=== PATIENT | female | born 1975 | race Caucasian/White ===

== ENCOUNTER → 2020-08-06 09:02 | Outpatient (CLI) | payer BC, SELFPAY ==
--- NOTE | ~2020-08-06 | XR_ITS ---
EXAMINATION: XR ribs RT 2V w CXR 2V INDICATION: Right-sided rib pain, history of breast cancer TECHNIQUE: Frontal and lateral views of the chest and 3 views of the right ribs were obtained. COMPARISON: 07/04/2016 FINDINGS: There is a calcified granuloma of the right lung. The lungs are free of acute opacities. Th ere is no pleural effusion or pneumothorax. The cardiomediastinal silhouette is normal. No displaced rib fracture is identified. IMPRESSION: 1. No acute cardiopulmonary abnormality or evidence of displaced rib fracture. Reviewed, dictated and finalized at location A.
== END ==
PROVIDERS: PCP Family Medicine Adolescent Medicine; Visit Provider Physician Assistant
DX: R07.81 Pleurodynia (principal); Z85.3 Personal history of malignant neoplasm of breast
CPT/HCPCS: 71046; 71100

== ENCOUNTER 2025-05-09 00:58 | Day surgery (SDC) | payer BC, SELFPAY ==
[2025-04-30 15:39] VITALS: BMI 43.0
--- NOTE | 2025-04-30 15:48 | PC.NURSE ---
Addendum entered by Sherin Alfaro RN 04/30/25 15:53: Patient states she has not started her semaglutide yet and will not start it until after her procedures. Original Note: Report to the Outpatient Waiting Room, entrance under the green pavilion located off [facility], at time ___714 on date _05/09/25 . Planned Procedure Time: .? Time changes happen often and if your time is changed the preop area will call you the afternoon before. - You and your visitor will be asked to self-screen and do not enter if you have any COVID symptoms. Please call surgeon if you need to reschedule. - A mask is optional within the hospital at this time. Patients may have clear liquids (water, carbonated beverages, clear teas, apple juice) until 3 hours prior to surgery with a maximum of 20 ounces. - No food from midnight until time of surgery and no smoking, or chewing tobacco (or any form of nicotine). No chewing gum, candy or mints. - Infants may have breast milk until 4 hours before surgery, infant formula 6 hours prior to surgery. - Children will be allowed to drink immediately following surgery.? If applicable, please bring a bottle or sippy cup to assist with drinking. Juice, water, soda, and popsicles are readily available.? For infants on formula, please bring formula the day of surgery.? Pacifiers are allowed. Take only the following medications with a SIP of water on the morning of surgery: _Coreg DO NOT STOP ANY OF YOUR OTHER PRESCRIPTION MEDICATIONS PRIOR TO SURGERY EXCEPT THE FOLLOWING Hold all vitamins and supplements for 3 days per anesthesiologist. Medications to discontinue per physician _N/A Date to take last dose__N/A Please no make-up, nail danish, hairspray, perfume, deodorant, or body powder the day of surgery.? No jewelry (including any body piercings) or valuables the day of surgery, leave them at home.? Please take a shower or bath the night before, or the morning of, surgery with an antibacterial soap.? Wear comfortable, loose fitting clothing.? Children are encouraged to wear pajamas. - Jewelry must be removed prior to entering the operating room.? Rings and piercings that are not removed may be cut off. - The hospital will not accept responsibility for valuables.? - Please leave all valuables, including medications, at home the day of surgery. If you are going home after surgery, a licensed spike driver must drive you home.? - NO public transportation without another adult if you receive anesthesia. - We recommend that an adult stay with you for 24 hours following discharge. - We also recommend that you do not drive, make important decision, drink alcoholic beverages, or take any drugs that were not prescribed by your health care provider for at least 24 hours after your discharge time. For Pediatric surgeries, we recommend two adults accompany the child home. Follow any additional instructions given to you from your surgeon. Telephone instructions given to __Adry and asked if any additional questions and then verbalized understanding. Patient advised to call surgeon office or pre surgery nurse liaison [phone] if any additional questions.
--- NOTE | 2025-05-07 15:11 | PM.IMHP ---
H&P: HPI History of Present Illness Date/Time: 05/07/25 15:11 50-year-old female presents for evaluation regarding postmenopausal bleeding. Breast cancer diagnosed over 5 years ago and took tamoxifen for 5 years and has been off of it since July of 2024. During that time she was on tamoxifen she had no bleeding. Since coming off tamoxifen she had a heavy period in December and then has been spotting on and off since that time. Ultrasound did reveal a 25mm irregularly-shaped endometrial cavity and therefore presents today for hysteroscopy with tissue sampling. Chief Complaint: Postmenopausal bleeding Review of Systems Review of Systems: All systems reviewed & are unremarkable except as noted in HPI and below PMFSH Past Medical History Medical History Encounter for IUD removal 07/20/17 Mirena removal/reinsertion 03/28/19 Mirena removal Encounter for IUD insertion 06/28/12 Mirena insertion 07/20/17 Mirena removal/reinsertion History of right breast cancer 08/2018 Invasive ductal ca, stage 1 grade 1 2018 21 days of radiation Nicotine dependence, cigarettes, uncomplicated Morbid obesity with BMI of 40.0-44.9, adult Hypertension Pure hypercholesterolemia, unspecified Dilated cardiomyopathy (2007) with CHF Surgical History Surgical History H/O right breast biopsy (09/06/18) S/P lumpectomy, right breast (11/30/18) S/P breast biopsy, left (10/13/18) [place] teeth extracted (~2000) History of bilateral breast reduction surgery (11/30/18) History of mastectomy, subtotal (11/30/18) rt breast partial mastectomy--invasive ductal carcinoma History of bunionectomy of both great toes 04/18/16 right foot 03/29/18 left foot History of 06/15/08 primary c/s--non-inducible cervix Family History Family History Father Diabetes mellitus Heart disease Hypertension Lung cancer Other Breast cancer paternal aunt Social History Social History Smoking packs per day: 0.5 Smoking cigarettes per day: 10.0 Years smoked: 20 Smoking pack-years: 10.00 Smoking status: Former smoker Tobacco type: cigarettes Second hand tobacco smoke exposure: No Smoking end date: 10/24/19 Alcohol intake: never Substance use: never Substance use type: does not use Lack of Transportation: No Lack of Food: Never True Current Housing: I Have Housing Concerned About Future Housing: No Difficulty Paying Gas/Electric Bills: No Difficulty Paying for Meds: No Currently Unemployed: No Education: Bachelor's Degree Difficulty w/ Childcare or Family Care: No Living arrangements: with family Additional living arrangements comments: with sp Occupation/Education: occupation Additional occupation/education comments: Teacher Gender identity (if verbalized by the patient): Female Sexual Orientation (if Verbalized by the Patient): Straight or Heterosexual Spiritual care concerns: No Agree to blood products: Yes Meds Home Medications and Allergies Home Medications ?Medication ?Instructions ?Recorded ?Confirmed ?Type amlodipine 5 mg-benazepril 20 mg 1 cap PO DAILY 07/18/23 05/01/25 History capsule atorvastatin 20 mg tablet (Lipitor) 20 mg PO QHS #90 tabs 04/08/25 05/01/25 Rx semaglutide (weight loss) 0.25 0.25 mg (0.5 mL) subcut WEEKLY #2 04/08/25 05/01/25 Rx mg/0.5 mL subcutaneous pen mL injector (Wegovy) carvedilol 25 mg tablet See Rx Instructions .Route 04/09/25 05/01/25 Rx .COMPLEX #180 tabs Allergies Allergy/AdvReac Type Severity Reaction Status Date / Time No Known Allergies Allergy Unknown Verified 05/01/25 14:09 Exam Const: General: cooperative and healthy appearing Resp: Effort & Inspection: normal respiratory effort Auscultation: clear to auscultation bilaterally Cardio: Rate: regular rate Rhythm: regular rhythm GI: Inspection: normal to inspection Auscultation: normal bowel sounds : External Female Exam: normal external appearance Speculum Exam - Vagina: normal appearance of the vagina Speculum Exam - Cervix: normal appearance of the cervix Bimanual exam- vagina & uterus: normal bimanual exam Bimanual Exam- Adnexa, other: normal adnexae Assessment and Plan Assessment and plan (1) Postmenopausal bleeding: Code(s): N95.0 - Postmenopausal bleeding Status: Acute (2) Endometrial thickening on ultrasound: Code(s): R93.89 - Abnormal findings on diagnostic imaging of other specified body structures Status: Acute (3) Personal history of breast cancer: Code(s): Z85.3 - Personal history of malignant neoplasm of breast Status: Acute Plan 1. Hysteroscopy with uterine curettings
--- OUTSIDE RECORDS SUMMARY | 2025-05-09 01:00 | XMS_ITS | Encounter Summary ---
Author Organization [facility] Address [address] [address] Care Team Providers Care Washtub Worker Name Role Phone Vernon Jones MD Primary Care Prov ider Krysta Norton MD PhD Unavailable [phone] Nicole Davis MD Unavailable [phone] Aft, Raya Claire MD PhD Unavailable [phone] Kassandra Ceja MD Unavailable Willian Alejo MD Unavailable [phone] Adrian Rhodes MD Unavailable [phone] Yancy Aguiar MD Unavailable [phone] Rupal Doty FRONT END MANAGER Unavailable [phone] Encounter Details Date Type Department Care Team (Late st Contact Info) Description 03/11/2017 Orders Only [facility] Provider, MD Dora [address] [place] [id number] Social History Tobacco Use Types Packs/Day Years Used Date Smoking Tobacco: Former Cigarettes Q uit: 09/23/2015 Alcohol Use Standard Drinks/Week Comments No 0 (1 standard drink = 0.6 oz pur e alcohol) Comments Unknown Sex and Gender Information Value Date Recorded Sex Assigned at Not on file Legal Sex Female 12:47 AM MORTGAGE ANALYST Gender Identity Not on file Sexual Orientation Not on file documented as of this encounter Plan of Treatment Not on file documented as of this encounter Procedures Procedure Name Priority Date/Time Associated Diagnosis Comments CARDIOLOGY REPORT 03/11/2017 CARDIOLOGY REPORT 03/11/2017 documented in this encounter Results * CARDIOLOGY REPORT (03/11/2017) Anatomical Region Laterality Modality Other Narrative 03/11/2017 Ordered by an unspecified provider. us Historical Provider [facility] CARDIAC SERVICES PROCE DURES Final Result * CARDIOLOGY REPORT (03/11/2017) Anatomical Region Laterality Modality Other Narrative 03/11/2017 Ordered by an unspecified provider. us Historical Provider CV CARDIAC SERVICES PROCE DURES Final Result documented in this encounter Visit Diagnoses Not on filedocumented in this encounter Additional Health Concerns Infection Onset Date Last Indicated Resolved Time COVID: Suspected 05/02/2024 05/02/2024 05/02/2024 4:57 PM CDT documented as of this encounter Care Teams Washtub Worker Relationship Specialty Start Date End Date Vernon Jones MD [address] [place] [address] PCP - General 01/21/17 Krysta Norton MD PhD [address] [place] [address] Radiation Oncologist Radiation Oncology 01/14/19 9 Nicole Davis MD [address] [place] [address] Radiation Oncologist Radiation Oncology 02/02/1905/25/ 2 Aft, Raya Claire MD PhD [address] [place] [address] Surgeon Surgical Oncology 02/02/19 Kassandra Ceja MD [address] [place] [address] Medical Oncologist/Split Leather Mosser Medical Oncology 05/31/19 10/28/20 Willian Alejo MD [address] [place] [address] Referring Physician Obstetrics and Gynecology 10/06/20 Adrian Rhodes MD [address] [place] [address] Radiation Oncologist Radiation Oncology 05/27/21 2 Yancy Aguiar MD [address] [place] [address] Radiation Oncologist Radiation Oncology 05/26/22 Rupal Doty, FRONT END MANAGER [address] [place] [address] Nurse Practitioner Medical Oncology 05/26/22 documented as of this encounter
--- OUTSIDE RECORDS SUMMARY | 2025-05-09 01:00 | XMS_ITS | Referral Summary ---
Author Organization [facility] [address] Address [address] [place] [address] Care Team Providers Care Coastal Tug Mate Name Role Phone Vernon Jones MD Primary Care Prov ider Aft, Raya Claire MD PhD Unavailable [phone] Willian Alejo MD Unavailable Rupal Doty NP Unavailable [phone] Allergies Active Allergy Reactions Criticality Noted Date Comments Atorvastatin Muscle pain Medium 01/10/2023 Rosuvastatin Muscle pain Medium Reaction: Legs got tight, Medications ezetimibe (ZETIA) 10 mg tablet Take 1 tablet (10 mg total) by mouth daily Active carvediloL (COREG) 25 mg tablet TAKE 1 TABLET(25 MG) BY MOUTH TWICE DAILY WITH MEALS 180 tablet 1 05/26/2022 Active amLODIPine-lula zepriL (LOTREL 5-20) 5-20 mg per capsule TAKE 1 CAPSULE BY MOUTH DAILY 90 capsule 1 09/17/2024 Active Active Problems Problem Noted Date Diagnosed Date Statin intolerance 12/28/2021 Encounter for follow-up exam ination after completed treatment for malignant neoplasm 05/27/2021 Personal history of irradiation 05/27/2021 skilled nursing (current) use of s elective estrogen receptor modulators (serms) 05/27/2021 Myalgia 12/17/2020 Reactive depression 04/16/2020 H/O cardiomyopathy 12/04/2019 History of breast cancer 05/31/2019 Malignant neoplasm of upper- inner quadrant of right breast in female, estrogen receptor positive 01/01/2019 Cancer Staging:Clinical:Stage IA(cT1, cN0, cM0, G1, ER+, AR+, HER2-) - Signed by Krysta Norton MD PhD on 01/14/2019 Pathologic:Stage IA(pT1c, pN0, cM0, G1, ER+, AR+, HER2-) - Signed by Krysta Norton MD PhD on 01/14/2019 Breast mass 08/28/2018 Class 3 obesity 03/14/2018 Hypercholesterolemia 02/08/2017 Overview (03/18/2017): Hypercholesteremia Ventricular premature beats 01/13/2016 Overview (01/27/2017): PVCs (premature ventricular contractions) Primary cardiomyopathy 09/03/2013 Overview (01/26/2017): PRIM CARDIOMYOPATHY NEC Essential hypertension 09/03/2013 Overview (01/28/2017): HYPERTENSION NOS Resolved Problems Problem Noted Date Diagnosed Date Resolved Date Abnormal findings on diagnos tic imaging of breast 08/28/2018 01/24/2019 Body mass index 40+ - severely obese 02/08/2017 03/14/2018 Overview (03/18/2017): Morbid obesity with BMI of 40.0-44.9, adult Immunizations Immunization Administration Dates Next Due Pfizer SARS-CoV-2 Monovalent Vaccination (12+ Yrs) PURPLE 12/23/2020,12/02/2020 Social History Tobacco Use Types Packs/Day Years Used Date Smoking Tobacco: Former Cigarettes 0.5 15 0 04/06/2004 - 04/06/2019 Smokeless Tobacco: Never Tobacco Cessation:Counseling Given: Not Answered Comments:Stopped smoking 3 months ago Alcohol Use Standard Drinks/Week Comments No 0 (1 standard drink = 0.6 oz pur e alcohol) AUDIT-C Answer Date Recorded Q1: How often do you have a drink containing alc ohol? Never 02/19/2022 Average Number of Drinks Not on file 022 Q3: How often do you have si x or more drinks on one occasion? Never 02/19/2022 Comments No Sex and Gender Information Value Date Recorded Sex Assigned at Not on file Legal Sex Female 12:47 AM SUPERVISING CHEF Gender Identity Not on file Sexual Orientation Not on file Last Filed Vital Signs Vital Sign Reading Time Taken Comments Blood Pressure 124/77 08/17/2024 2:17 PM CDT Pulse 75 08/17/2024 2:17 PM CDT Temperature 36.4 C (97.5 F) 08/17/2024 2:17 PM CDT Respiratory Rate 20 08/17/2024 2:17 PM CDT Oxygen Saturation 97% 08/17/2024 2:17 PM CDT Inhaled Oxygen Concentration - - Weight 97.5 kg (215 lb) 01/11/2025 1:05 PM CDT Height 160 cm (5' 2.99) 01/11/2025 1:05 PM CDT Body Mass Index 38.1 01/11/2025 1:05 PM CDT Plan of Treatment Not on file Medical Devices Implanted Type Area Surtass Analyst Device Identifier Shelf Expiration Date Model / Serial / Lot Iud Uterus Berlex Lab Bilateral Pin In Great Toe Toes Procedures Procedure Name Priority Date/Time Associated Diagnosis Comments SCREENING MAMMOGRAM BILATERAL W JN Schedule Routine, Read Routine (OP Routine) 10/01/2024 11:03 AM SUPERVISING CHEF History of breast cancer Malignant neoplasm of upper-inner quadrant of right breast in female, estrogen receptor positive (HCC) from Last 3 Months or Most Recently Relevant to Health Maintenance Results * Screening Mammogram Bilateral W Jn (10/01/2024 11:03 AM SUPERVISING CHEF) Anatomical Region Laterality Modality Breast Bilateral Mammography Narrative 10/02/2024 11:18 AM SUPERVISING CHEF Mammogram Technique: Bilateral Digital Breast Tomosynthesis, Bilateral C-view 2D Screening mammogram. Views obtained: bilateral craniocaudal and bilateral mediolateral oblique. Computer Aided Detection was performed. Mammogram Findings: The present examination has been compared to prior imaging studies performed at [facility] on 10/12/2021, 09/08/2022 and 09/26/2023. There are scattered areas of fibroglandular density. There is no suspicious abnormality in either breast. Impression: There is no mammographic evidence of malignancy. Annual screening mammography is recommended. OVERALL FINAL ASSESSMENT: BI-RADS CATEGORY 1: Negative. Procedure Note Silvia Durant MD - 10/02/2024 Mammogram Technique: Bilateral Digital Breast Tomosynthesis, Bilateral C-view 2D Screening mammogram. Views obtained: bilateral craniocaudal and bilateral mediolateral oblique. Computer Aided Detection was performed. Mammogram Findings: The present examination has been compared to prior imaging studies performed at [facility] on 10/12/2021, 09/08/2022 and 09/26/2023. There are scattered areas of fibroglandular density. There is no suspicious abnormality in either breast. Impression: There is no mammographic evidence of malignancy. Annual screening mammography is recommended. OVERALL FINAL ASSESSMENT: BI-RADS CATEGORY 1: Negative. Selena Morley NP IMG MAMMO PROCEDURES Final Result from Last 3 Months or Most Recently Relevant to Health Maintenance [place] [employer] [place] [place] [place] Advance Directives For more information, please contact: [phone] * Full Code (Latest Code Status on File) Date Activated Date Inactivated Comments 11/30/2018 3:09 PM 12/01/2018 6:56 PM Care Teams Coastal Tug Mate Relationship Specialty Start Date End Date Vernon Jones MD [address] [place] [address] PCP - General 01/21/17 AftRaya MD PhD [address] [place] [address] Surgeon Surgical Oncology 02/02/19 Willian Alejo MD [address] [place] [address] Referring Physician Obstetrics and Gynecology 10/06/20 Rupal Doty, QUILL MACHINE OPERATOR [address] [place] [address] Nurse Practitioner Medical Oncology 05/26/22
--- OUTSIDE RECORDS SUMMARY | 2025-05-09 01:00 | XMS_ITS | Clinical Summary ---
Author Organization [facility] [address] Address [address] [place] [address] Care Team Providers Care Cardiac Cath Technician Name Role Phone Vernon Jones MD Primary Care Prov ider Aft, Raya Claire MD PhD Unavailable [phone] Willian Alejo MD Unavailable [phone] Rupal Doty NP Unavailable [phone] Allergies Active Allergy Reactions Criticality Noted Date [...] neoplasm 05/27/2021 Personal history of irradiation 05/27/2021 custodial (current) use of s elective estrogen receptor modulators (serms) 05/27/2021 Myalgia 12/17/2020 Reactive depression 04/16/2020 H/O cardiomyopathy 12/04/2019 History of breast cancer 05/31/2019 Malignant neoplasm of upper- inner quadrant of right breast in female, estrogen receptor positive 01/01/2019 Cancer Staging:Clinical:Stage IA(cT1, cN0, cM0, G1, ER+, TN+, HER2-) - Signed by Krysta Norton MD PhD on 01/14/2019 Pathologic:Stage IA(pT1c, pN0, cM0, G1, ER+, TN+, HER2-) - Signed by Krysta Norton MD [...] SARS-CoV-2 Monovalent Vaccination (12+ Yrs) PURPLE 12/23/2020,12/02/2020 Surgical History Surgery Date Site/Laterality Comments SECTION 10/24/2007 - 10/23/2008 BUNIONECTOMY 2015 and 2017-pins in each big toe BREAST BIOPSY 09/06/2018 Right BREAST BIOPSY 10/13/2018 Left BREAST LUMPECTOMY 11/30/2018 Right REDUCTION MAMMAPLASTY 11/30/2018 Bilateral Medical History Medical History Date Comments Hypertension Hypertension Hx Other Medical Cardiomyopathy- Overweight PONV (postoperative nausea and vomiting) slight nausea with last sx, no vomitting. Hyperlipidemia Cancer (HCC) right breast History of radiation therapy Fin ished 03/13/19 Right breast Breast cancer (HCC) Family History Medical History Relation Name Comments Other Brother 2 healthy; Cancer Father Ilat lung Hypertension Father Liat Lung cancer Father Liat Stroke Father Liat Breast cancer Father's Sister unknown Other Mother healthy; Relation Name Status Comments Brother 1 Alive Brother 2 Father Liat Father's Sister Mother Alive Social History Tobacco Use Types Packs/Day Years [...] on file Legal Sex Female 12:47 AM DEMOLITION SPECIALIST Gender Identity Not on file Sexual Orientation Not on file Obstetrics History Last Filed Vital Signs Vital Sign Reading [...] 01/11/2025 1:05 PM CDT Plan of Treatment Health Maintenance Due Date Last Done Comments Cervical Cancer Screening 1974 Colon Cancer Screening-Colonoscopy 1974 Depression Screening 1974 Hepatitis C Screening 1974 DTaP/Tdap/Td Vaccine (1 - Tdap) 1985 Hepatitis B Screening 01/04/1992 Regular Well Visit/Exam 18-64 01/04/1992 Zoster Vaccine (1 of 2) 01/04/2024 Covid-19 Vaccine ( - season) 2024 01/11/2021, 12/23/2020, 12/02/2020 Influenza Vaccine (#1) 2025 Breast Cancer Screening-Mammogram 10/01/2025 10/01/2024, 09/26/2023, 09/08/2022, Additional history exists Pneumococcal vaccine <65 Aged Out No longer eligible based on patient's age to complete this topic Medical Devices Implanted Type Area Mail Examiner Device Identifier Shelf Expiration Date Model / Serial / Lot Iud Uterus Berlex Lab Bilateral Pin In Great Toe Toes Procedures Procedure Name Priority Date/Time Associated Diagnosis Comments SCREENING MAMMOGRAM BILATERAL W ROBERT Schedule Routine, Read Routine (OP Routine) 10/01/2024 11:03 AM DEMOLITION SPECIALIST History of breast cancer Malignant neoplasm of upper-inner quadrant of right breast in female, estrogen receptor positive (HCC) from Last 3 Months or Most Recently Relevant to Health Maintenance Results * Screening Mammogram Bilateral W Robert (10/01/2024 11:03 AM DEMOLITION SPECIALIST) Anatomical Region Laterality Modality Breast Bilateral Mammography Narrative 10/02/2024 11:18 AM DEMOLITION SPECIALIST Mammogram Technique: Bilateral Digital Breast Tomosynthesis, Bilateral C-view 2D Screening mammogram. Views obtained: bilateral craniocaudal and bilateral mediolateral oblique. Computer Aided Detection was performed. Mammogram Findings: The present examination has been compared to prior imaging studies performed at [facility] on 10/12/2021, 09/08/2022 and 09/26/2023. There are [...] compared to prior imaging studies performed at [facility] on 10/12/2021, 09/08/2022 and 09/26/2023. There are scattered areas of fibroglandular density. There is no suspicious abnormality in either breast. Impression: There is no mammographic evidence of malignancy. Annual screening mammography is recommended. OVERALL FINAL ASSESSMENT: BI-RADS CATEGORY 1: Negative. Selena Morley NP IMG MAMMO PROCEDURES Final Result from Last 3 Months or Most Recently Relevant to Health Maintenance Insurance [employer] [place] [employer] [place] [facility] Advance Directives For more information, please contact: [phone] * Full Code (Latest Code Status on File) Date Activated Date Inactivated Comments 11/30/2018 3:09 PM 12/01/2018 6:56 PM Care Teams Cardiac Cath Technician Relationship Specialty Start Date End Date Vernon Jones MD [address] [place] [address] PCP - General 01/21/17 Aft, Raya Claire MD PhD [address] [place] [address] Surgeon Surgical Oncology 02/02/19 Willian Alejo MD [address] [place] [address] Referring Physician Obstetrics and Gynecology 10/06/20 Rupal Doty, SUSHIL [address] [place] [address] Nurse Practitioner Medical Oncology 05/26/22
--- OUTSIDE RECORDS SUMMARY | 2025-05-09 01:00 | XMS_ITS ---
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 receptor modulators (serms) 05/27/2021 Myalgia 12/17/2020 Reactive depression 04/16/2020 H/O cardiomyopathy 12/04/2019 History of breast cancer 05/31/2019 Malignant neoplasm of upper- inner quadrant of right breast in female, estrogen receptor positive 01/01/2019 Cancer Staging:Clinical:Stage IA(cT1, cN0, cM0, G1, ER+, HI+, HER2-) - Signed by Krysta Norton MD PhD on 01/14/2019 Pathologic:Stage IA(pT1c, pN0, cM0, G1, ER+, HI+, HER2-) - Signed by Krysta Norton MD PhD on 01/14/2019 Breast mass 08/28/2018 Class 3 obesity 03/14/2018 Hypercholesterolemia 02/08/2017 Overview (03/18/2017): Hypercholesteremia Ventricular premature beats 01/13/2016 Overview (01/27/2017): PVCs (premature ventricular contractions) Primary cardiomyopathy 09/03/2013 Overview (01/26/2017): PRIM CARDIOMYOPATHY NEC Essential hypertension 09/03/2013 Overview (01/28/2017): HYPERTENSION NOS Current Treatment and Therapy Plans No current plan information found. Past Treatment and Therapy Plans No past plan information found. Radiation Treatments * Course C1 RtBreast 2019 02/13/2019 - 03/13/2019 Treatment Period Energy Fraction Dose Fractions Total Dose Plans Planned Rt Brst Boost 03/07/2019 - 03/13/2019 200 5 / 1,000 Rt Breast_# 02/13/2019 - 03/06/2019 266 16 / 4,256 Reference Points Delivered Boost 03/07/2019 - 03/13/2019 1,000 Rt Breast 02/13/2019 - 03/06/2019 4,256 Resolved Problems Problem Noted Date Diagnosed Date Resolved Date Abnormal findings on diagnos tic imaging of breast 08/28/2018 01/24/2019 Body mass index 40+ - severely obese 02/08/2017 03/14/2018 Overview (03/18/2017): Morbid obesity with BMI of 40.0-44.9, adult
[2025-05-09 07:41] VITALS: BP 120/98; PULSE 73; RESP 20; TEMP 36.3; O2SAT 96
[2025-05-09] MEDS: ACETAMINOPHEN 500 MG TABLET 1000 MG PO (07:41)
--- NOTE | 2025-05-09 07:48 | WPDANESEPPF ---
Anes - Initial Pre Proc Eval Procedure: Operation Date: 05/09/25 09:15 Proposed Procedures p Hysteroscopy, Dilation and Curettage - Willian Alejo MD Date/Time: 05/09/25 07:48 Surgeon: Willian Alejo MD Pre Op Diagnosis: post menopausal bleeding Patient Data Age: 50 Gender: F Height: 1.6 m Weight: 110.6 kg Last Vital Signs Temp 36.3 C L 05/09/25 07:41 Pulse 73 05/09/25 07:41 Resp 20 05/09/25 07:41 BP 120/98 H 05/09/25 07:41 Pulse Ox 96 05/09/25 07:41 O2 Del Method Room Air 05/09/25 07:41 Allergies Allergy/AdvReac Type Severity Reaction Status Date / Time No Known Allergies Allergy Unknown Verified 05/09/25 07:37 Home Medications ?Medication ?Instructions ?Recorded ?Confirmed ?Type amlodipine 5 mg-benazepril 20 mg 1 cap PO DAILY 07/18/23 05/09/25 History capsule atorvastatin 20 mg tablet (Lipitor) 20 mg PO QHS #90 tabs 04/08/25 05/09/25 Rx semaglutide (weight loss) 0.25 0.25 mg (0.5 mL) subcut WEEKLY #2 04/08/25 05/01/25 Rx mg/0.5 mL subcutaneous pen mL injector (Wegovy) carvedilol 25 mg tablet See Rx Instructions .Route 04/09/25 05/09/25 Rx .COMPLEX #180 tabs Patient hx anesthesia problems: none Family hx anesthesia problems: none Results Review: All pre-operative results and documents have been reviewed as part of the pre-operative evaluation. [facility] Past Medical History Medical History Encounter for IUD removal 07/20/17 Mirena removal/reinsertion 03/28/19 Mirena removal Encounter for IUD insertion 06/28/12 Mirena insertion 07/20/17 Mirena removal/reinsertion History of right breast cancer 08/2018 Invasive ductal ca, stage 1 grade 1 2019 21 days of radiation Nicotine dependence, cigarettes, uncomplicated Morbid obesity with BMI of 40.0-44.9, adult Hypertension Pure hypercholesterolemia, unspecified Dilated cardiomyopathy (2007) with CHF Surgical History Surgical History H/O right breast biopsy (09/06/18) S/P lumpectomy, right breast (11/30/18) S/P breast biopsy, left (10/13/18) [place] teeth extracted (~2000) History of bilateral breast reduction surgery (11/30/18) History of mastectomy, subtotal (11/30/18) rt breast partial mastectomy--invasive ductal carcinoma History of bunionectomy of both great toes 04/18/16 right foot 03/29/18 left foot History of 06/15/08 primary c/s--non-inducible cervix Family History Family History Father Diabetes mellitus Heart disease Hypertension Lung cancer Other Breast cancer paternal aunt Social History Social History Smoking packs per day: 0.5 Smoking cigarettes per day: 10.0 Years smoked: 20 Smoking pack-years: 10.00 Smoking status: Former smoker Tobacco type: cigarettes Second hand tobacco smoke exposure: No Smoking end date: 10/24/19 Alcohol intake: never Substance use: never Substance use type: does not use Lack of Transportation: No Lack of Food: Never True Current Housing: I Have Housing Concerned About Future Housing: No Difficulty Paying Gas/Electric Bills: No Difficulty Paying for Meds: No Currently Unemployed: No Education: Bachelor's Degree Difficulty w/ Childcare or Family Care: No Living arrangements: with family Additional living arrangements comments: with sp Occupation/Education: occupation Additional occupation/education comments: Teacher Gender identity (if verbalized by the patient): Female Sexual Orientation (if Verbalized by the Patient): Straight or Heterosexual Spiritual care concerns: No Agree to blood products: Yes Anes - Eval Final PreProcedure Day of Procedure 05/09/25 07:48 Patient weight: morbidly obese Heart: regular rate and rhythm Lungs: clear to auscultation Airway: Mallampati scale class III Neurological: alert and oriented Last oral intake: >/= 8 hours ASA classification: III Emergent: no Anesthetic plan: proceed Anesthesia type and monitoring: general GIVS and standard monitoring Results Review: All pre-operative results and documents have been reviewed as part of the pre-operative evaluation. Informed Consent: The patient's anesthetic plan and its attendant risks and benefits were discussed with the patient/family/POA. Questions were solicited and answers provided to the satisfaction of the patient/family/POA.
--- NOTE | 2025-05-09 07:59 | WPDHPUPDATE1 ---
History and Physical Update Update Date/Time: 05/09/25 07:59 History and Physical has been reviewed, including an updated exam of the patient. There are NO changes in the patient's condition. Risks, benefits, and alternatives have been discussed and questions answered. Patient agrees to proceed with procedure.
--- NOTE | 2025-05-09 08:37 | S_PTH ---
PATIENT: Adry Cevallos LOC: [facility] U#:[id number] AGE/SX: 50/F ROOM: RE05/09/[address]: Willian Alejo MD : 1975 BED: DIS: 05/09/2025 SPEC #: [id number] RECD: 05/09/25 09:47 STATUS: KARRIE REQ #: [id number] FAIZA: 05/09/25 08:[address]: Willian Alejo DEPT: [facility] Surgical RECD BY: Maki Whitman ENTERED: 05/09/25 09:47 SP TYPE: Surgical OTHR DR: Tayler Capone APRN Tissues: A - Endometrial Curettings Procedures: Hematoxylin and Eosin Stain Gross and Microscopic Level 4
--- NOTE | 2025-05-09 08:38 | W.PM.PROC2 ---
Procedure Note - Detailed Date of Procedure 05/09/25 Pre-op Diagnosis post menopausal bleeding Post-op Diagnosis Same Procedure Performed 1. Hysteroscopy with uterine curettings Surgeon Willian Alejo MD Anesthesia MAC Findings Hypervascular endometrial cavity with multiple polypoid appearing lesions Description of Procedure Patient was prepped and draped usual manner for this procedure. Cervix was dilated to allow the hysteroscope to be placed. Hysteroscopic exam revealed findings as noted above with multiple polypoid and hypervascular tissue noted. Curettings of all 4 quadrants were undertaken and the majority of this tissue was removed. There was minimal bleeding and the patient was sent to recovery room stable condition. Estimated Blood Loss 10 Drains No Packing No Pathology Yes Complications No immediate complications Condition Stable Disposition PACU [facility] Billing Surgery - Charge Forward: Surgery Billing
[2025-05-09] MEDS: KETOROLAC 30 MG/ML VIAL (*BKC) IV PUSH (08:39)
[2025-05-09 08:43] VITALS: BP 111/56; PULSE 53; RESP 14; O2SAT 100
[2025-05-09] MEDS: LACTATED RINGERS 1,000 ML 30 ML IV CONT (08:43)
[2025-05-09 09:10] VITALS: BP 105/68; PULSE 56; RESP 20
[2025-05-09 09:40] VITALS: BP 114/80; PULSE 63; RESP 20
== END 2025-05-09 09:45 | disposition home or self-care (01) ==
PROVIDERS: PCP Nurse Practitioner Family; Visit Provider Obstetrics & Gynecology
PROC: 0U5B8ZZ Destruction of Endometrium, Via Natural or Artificial Opening Endoscopic (ICD-10-PCS; CPT 58563; principal; 2025-05-09 09:15)
DX: N95.0 Postmenopausal bleeding (principal); N84.0 Polyp of corpus uteri; Z87.891 Personal history of nicotine dependence; E66.01 Morbid (severe) obesity due to excess calories; Z68.41 Body mass index [BMI] 40.0-44.9, adult; Z85.3 Personal history of malignant neoplasm of breast
CPT/HCPCS: 58558; 88305; A9270; J1100; J1885; J2003; J2250; J2405; J2704; J3010; J7120

== ENCOUNTER 2025-05-14 00:25 | Day surgery (SDC) | payer BC, SELFPAY ==
[2025-05-01 14:11] VITALS: BMI 42.5
--- OUTSIDE RECORDS SUMMARY | 2025-05-14 00:29 | XMS_ITS | Encounter Summary ---
Author Organization [facility] Address [address] [address] Care Team Providers Care Tufting Machine Fixer Name Role Phone Vernon Jones MD Primary Care Prov ider Krysta Norton MD PhD Unavailable [phone] Nicole Davis MD Unavailable [phone] Aft, Raya Claire MD PhD Unavailable [phone] Kassandra Ceja MD Unavailable Willian Alejo MD Unavailable [phone] Adrian Rhodes MD Unavailable [phone] Yancy Aguiar MD Unavailable [phone] Rupal Doty COCONUT JELLY ROLLER Unavailable [phone] Encounter Details Date Type Department Care Team (Late st Contact Info) Description 03/11/2017 Orders Only [facility] Provider, MD Dora [address] [place] [id number] Social History Tobacco Use Types Packs/Day Years Used Date Smoking Tobacco: Former Cigarettes Q uit: 09/23/2015 Alcohol Use Standard Drinks/Week Comments No 0 (1 standard drink = 0.6 oz pur e alcohol) Comments Unknown Sex and Gender Information Value Date Recorded Sex Assigned at Not on file Legal Sex Female 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 Gender Identity Not on file Sexual Orientation [...] documented as of this encounter Care Teams Tufting Machine Fixer Relationship Specialty Start Date End Date Vernon Jones MD [address] [place] [address] PCP - General 01/21/17 Krysta Norton MD PhD [address] [place] [address] Radiation Oncologist Radiation Oncology 01/14/19 9 Nicole Davis MD [address] [place] [address] Radiation Oncologist Radiation Oncology 02/02/1905/25/ 2 Aft, Raya Claire MD PhD [address] [place] [address] Surgeon Surgical Oncology 02/02/19 Kassandra Ceja MD [address] [place] [address] Medical Oncologist/Bench Loom Weaver Medical Oncology 05/31/19 10/28/20 Willian Alejo MD [address] [place] [address] Referring Physician Obstetrics and Gynecology 10/06/20 Adrian Rhodes MD [address] [place] [address] Radiation Oncologist Radiation Oncology 05/27/21 2 Yancy Aguiar MD [address] [place] [address] Radiation Oncologist Radiation Oncology 05/26/22 Rupal Doty, COCONUT JELLY ROLLER [address] [place] [address] Nurse Practitioner Medical Oncology 05/26/22 documented as of this encounter
--- OUTSIDE RECORDS SUMMARY | 2025-05-14 00:29 | XMS_ITS | Referral Summary ---
Author Organization [facility] [address] Address [address] [place] [address] Care Team Providers Care Motor Builder Assembler Name Role Phone Vernon Jones MD Primary Care Prov ider Aft, Raya Claire MD PhD Unavailable [phone] Willian Alejo MD Unavailable [phone] Rupal Doty NP Unavailable [phone] Allergies Active Allergy Reactions Criticality Noted Date [...] neoplasm 05/27/2021 Personal history of irradiation 05/27/2021 shelter (current) use of s elective estrogen receptor modulators (serms) 05/27/2021 Myalgia 12/17/2020 Reactive depression 04/16/2020 H/O cardiomyopathy 12/04/2019 History of breast cancer 05/31/2019 Malignant neoplasm of upper- inner quadrant of right breast in female, estrogen receptor positive 01/01/2019 Cancer Staging:Clinical:Stage IA(cT1, cN0, cM0, G1, ER+, DE+, HER2-) - Signed by Krysta Norton MD PhD on 01/14/2019 Pathologic:Stage IA(pT1c, pN0, cM0, G1, ER+, DE+, HER2-) - Signed by Krysta Norton MD [...] on file Legal Sex 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 Gender Identity Not on file Sexual Orientation [...] on file Medical Devices Implanted Type Area Service Desk Manager Device Identifier Shelf Expiration Date Model / Serial / Lot Iud Uterus Berlex Lab Bilateral Pin In Great Toe Toes Procedures Procedure Name Priority Date/Time Associated Diagnosis Comments SCREENING MAMMOGRAM BILATERAL W JN Schedule Routine, Read Routine (OP Routine) 10/01/2024 11:03 AM HEAT TREAT FURNACE OPERATOR History of breast cancer Malignant neoplasm of upper-inner quadrant of right breast in female, estrogen receptor positive (HCC) from Last 3 Months or Most Recently Relevant to Health Maintenance Results * Screening Mammogram Bilateral W Jn (10/01/2024 11:03 AM HEAT TREAT FURNACE OPERATOR) Anatomical Region Laterality Modality Breast Bilateral Mammography Narrative 10/02/2024 11:18 AM HEAT TREAT FURNACE OPERATOR Mammogram Technique: Bilateral Digital Breast Tomosynthesis, Bilateral C-view 2D Screening mammogram. Views obtained: bilateral craniocaudal and bilateral mediolateral oblique. Computer Aided Detection was performed. Mammogram Findings: The present examination has been compared to prior imaging studies performed at [facility] on 10/12/2021, 09/08/2022 and 09/26/2023. There are [...] compared to prior imaging studies performed at [facility] on 10/12/2021, 09/08/2022 and 09/26/2023. There are scattered areas of fibroglandular density. There is no suspicious abnormality in either breast. Impression: There is no mammographic evidence of malignancy. Annual screening mammography is recommended. OVERALL FINAL ASSESSMENT: BI-RADS CATEGORY 1: Negative. Selena Morley NP IMG MAMMO PROCEDURES Final Result from Last 3 Months or Most Recently Relevant to Health Maintenance [place] Advance Directives For more information, please contact: [phone] * Full Code (Latest Code Status on File) Date Activated Date Inactivated Comments 11/30/2018 3:09 PM 12/01/2018 6:56 PM Care Teams Motor Builder Assembler Relationship Specialty Start Date End Date Vernon Jones MD [address] [place] [address] PCP - General 01/21/17 AftRaya MD PhD [address] [place] [address] Surgeon Surgical Oncology 02/02/19 Willian Alejo MD [address] [place] [address] Referring Physician Obstetrics and Gynecology 10/06/20 Rupal Doty, MARKETING COMMUNICATIONS SPECIALIST [address] [place] [address] Nurse Practitioner Medical Oncology 05/26/22
--- OUTSIDE RECORDS SUMMARY | 2025-05-14 00:29 | XMS_ITS ---
Author Organization [facility] [address] Address [address] [place] [address] Care Team Providers Care Coke Crane Operator Name Role Phone Vernon Jones MD Primary Care Prov ider Aft, Raya Claire MD PhD Unavailable [phone] Willian Alejo MD Unavailable [phone] Rupal Doty NP Unavailable [phone] Active Problems Problem Noted Date Diagnosed Date Statin intolerance 12/28/2021 Encounter for follow-up exam ination after completed treatment for malignant neoplasm 05/27/2021 Personal history of irradiation 05/27/2021 terminal operator (current) use of s elective estrogen receptor [...]
--- OUTSIDE RECORDS SUMMARY | 2025-05-14 00:29 | XMS_ITS | Clinical Summary ---
Author Organization [facility] [address] Address [address] [place] [address] Care Team Providers Care Shirring Machine Operator Automatic Name Role Phone Vernon Jones MD Primary Care Prov ider Aft, Raya Claire MD PhD Unavailable [phone] Willian Alejo MD Unavailable Rupal Doty NP Unavailable [phone] Allergies Active Allergy Reactions Criticality Noted Date [...] neoplasm 05/27/2021 Personal history of irradiation 05/27/2021 half-way (current) use of s elective estrogen receptor modulators (serms) 05/27/2021 Myalgia 12/17/2020 Reactive depression 04/16/2020 H/O cardiomyopathy 12/04/2019 History of breast cancer 05/31/2019 Malignant neoplasm of upper- inner quadrant of right breast in female, estrogen receptor positive 01/01/2019 Cancer Staging:Clinical:Stage IA(cT1, cN0, cM0, G1, ER+, MS+, HER2-) - Signed by Krysta Norton MD PhD on 01/14/2019 Pathologic:Stage IA(pT1c, pN0, cM0, G1, ER+, MS+, HER2-) - Signed by Krysta Norton MD [...] Comments Other Brother 2 healthy; Cancer Father Liat lung Hypertension Father Liat Lung cancer Father [...] on file Legal Sex Female 12:47 AM TOWEL SEWER Gender Identity Not on file Sexual Orientation [...] this topic Medical Devices Implanted Type Area Visually Impaired Teacher Device Identifier Shelf Expiration Date Model / Serial / Lot Iud Uterus Berlex Lab Bilateral Pin In Great Toe Toes Procedures Procedure Name Priority Date/Time Associated Diagnosis Comments SCREENING MAMMOGRAM BILATERAL W ROBERT Schedule Routine, Read Routine (OP Routine) 10/01/2024 11:03 AM TOWEL SEWER History of breast cancer Malignant neoplasm of upper-inner quadrant of right breast in female, estrogen receptor positive (HCC) from Last 3 Months or Most Recently Relevant to Health Maintenance Results * Screening Mammogram Bilateral W Robert (10/01/2024 11:03 AM TOWEL SEWER) Anatomical Region Laterality Modality Breast Bilateral Mammography Narrative 10/02/2024 11:18 AM TOWEL SEWER Mammogram Technique: Bilateral Digital Breast Tomosynthesis, Bilateral C-view 2D Screening mammogram. Views obtained: bilateral craniocaudal and bilateral mediolateral oblique. Computer Aided Detection was performed. Mammogram Findings: The present examination has been compared to prior imaging studies performed at [facility] on 10/12/2021, 09/08/2022 and 09/26/2023. [...] compared to prior imaging studies performed at [facility] on 10/12/2021, 09/08/2022 and 09/26/2023. There are scattered areas of fibroglandular density. There is no suspicious abnormality in either breast. Impression: There is no mammographic evidence of malignancy. Annual screening mammography is recommended. OVERALL FINAL ASSESSMENT: BI-RADS CATEGORY 1: Negative. Selena Morley NP IMG MAMMO PROCEDURES Final Result from Last 3 Months or Most Recently Relevant to Health Maintenance Insurance [employer] [place] [employer] [place] [facility] Advance Directives For more information, please contact: [phone] * Full Code (Latest Code Status on File) Date Activated Date Inactivated Comments 11/30/2018 3:09 PM 12/01/2018 6:56 PM Care Teams Shirring Machine Operator Automatic Relationship Specialty Start Date End Date Vernon Jones MD [address] [place] [address] PCP - General 01/21/17 Aft, Raya Claire MD PhD [address] [place] [address] Surgeon Surgical Oncology 02/02/19 Willian Alejo MD [address] [place] [address] Referring Physician Obstetrics and Gynecology 10/06/20 Rupal Doty, SUSHIL [address] [place] [address] Nurse Practitioner Medical Oncology 05/26/22
[2025-05-14 11:13] VITALS: BP 138/88; PULSE 91; RESP 18; TEMP 36.7; O2SAT 98
[2025-05-14 11:20] LABS: BEDSIDEPREGUCG Negative (Negative)
[2025-05-14] MEDS: LACTATED RINGERS 1,000 ML 150 ML IV CONT (11:25)
--- NOTE | 2025-05-14 12:02 | P.PNAN_ITS ---
Anes - Initial Pre Proc Eval Procedure: Operation Date: 05/14/25 12:30 Proposed Procedures p Screening Colonoscopy - Michael Gipson DO Date/Time: 05/14/25 12:02 Surgeon: Michael Gipson DO Pre Op Diagnosis: Neoplasm screening Patient Data Age: 50 Gender: F Height: 1.6 m Weight: 108.6 kg Last Vital Signs Temp 36.7 C 05/14/25 11:13 Pulse 91 05/14/25 11:13 Resp 18 05/14/25 11:13 BP 138/88 05/14/25 11:13 Pulse Ox 98 05/14/25 11:13 O2 Del Method Room Air 05/14/25 11:13 Allergies Allergy/AdvReac Type Severity Reaction Status Date / Time No Known Allergies Allergy Unknown Verified 05/14/25 11:12 Home Medications ?Medication ?Instructions ?Recorded ?Confirmed ?Type amlodipine 5 mg-benazepril 20 mg 1 cap PO DAILY 07/18/23 05/14/25 History capsule atorvastatin 20 mg tablet (Lipitor) 20 mg PO QHS #90 tabs 04/08/25 05/14/25 Rx semaglutide (weight loss) 0.25 0.25 mg (0.5 mL) subcut WEEKLY #2 04/08/25 05/01/25 Rx mg/0.5 mL subcutaneous pen mL injector (Wegovy) carvedilol 25 mg tablet See Rx Instructions .Route 04/09/25 05/14/25 Rx .COMPLEX #180 tabs ibuprofen 600 mg tablet 600 mg PO TID #20 tabs 05/09/25 05/14/25 Rx Laboratory Tests 05/14/25 11:17 POC Urine HCG, Qual Negative (Negative) Patient hx anesthesia problems: none Family hx anesthesia problems: none Results Review: All pre-operative results and documents have been reviewed as part of the pre- operative evaluation. [facility] Past Medical History Medical History Encounter for IUD removal 07/20/17 Mirena removal/reinsertion 03/28/19 Mirena removal Encounter for IUD insertion 06/28/12 Mirena insertion 07/20/17 Mirena removal/reinsertion History of right breast cancer 08/2018 Invasive ductal ca, stage 1 grade 1 2018 21 days of radiation Nicotine dependence, cigarettes, uncomplicated Morbid obesity with BMI of 40.0-44.9, adult Hypertension Pure hypercholesterolemia, unspecified Dilated cardiomyopathy (2007) with CHF Surgical History Surgical History H/O right breast biopsy (09/06/18) S/P lumpectomy, right breast (11/30/18) S/P breast biopsy, left (10/13/18) [place] teeth extracted (~2000) History of bilateral breast reduction surgery (11/30/18) History of mastectomy, subtotal (11/30/18) rt breast partial mastectomy--invasive ductal carcinoma History of bunionectomy of both great toes 04/18/16 right foot 03/29/18 left foot History of 06/15/08 primary c/s--non-inducible cervix Family History Family History Father Diabetes mellitus Heart disease Hypertension Lung cancer Other Breast cancer paternal aunt Social History Social History Smoking packs per day: 0.5 Smoking cigarettes per day: 10.0 Years smoked: 25 Smoking pack-years: 12.50 Smoking status: Former smoker Tobacco type: cigarettes Second hand tobacco smoke exposure: No Smoking end date: 10/24/19 Alcohol intake: never Substance use: never Substance use type: does not use Lack of Transportation: No Lack of Food: Never True Current Housing: I Have Housing Concerned About Future Housing: No Difficulty Paying Gas/Electric Bills: No Difficulty Paying for Meds: No Currently Unemployed: No Education: Bachelor's Degree Difficulty w/ Childcare or Family Care: No Living arrangements: with family Additional living arrangements comments: Occupation/Education: occupation Additional occupation/education comments: Teacher Gender identity (if verbalized by the patient): Female Sexual Orientation (if Verbalized by the Patient): Straight or Heterosexual Spiritual care concerns: No Agree to blood products: Yes Anes - Eval Final PreProcedure Day of Procedure 05/14/25 12:02 Patient weight: morbidly obese Heart: regular rate and rhythm Lungs: clear to auscultation and decreased breath sounds Airway: Mallampati scale class III Neurological: alert and oriented Last oral intake: >/= 8 hours ASA classification: III Emergent: no Anesthesia type and monitoring: general GIVS and standard monitoring Results Review: All pre-operative results and documents have been reviewed as part of the pre- operative evaluation. Informed Consent: The patient's anesthetic plan and its attendant risks and benefits were discuss ed with the patient/family/POA. Questions were solicited and answers provided to the satisfaction of the patient/family/POA.
--- NOTE | 2025-05-14 12:05 | P.HP_ITS ---
H&P: HPI History of Present Illness Date/Time: 05/14/25 12:05 Chief Complaint: Screening for colorectal cancer Narrative: this is a 50-year-old woman who presents for her 1st colonoscopy. She denies any hematochezia or melena. She denies any family history of colon cancer. Review of Systems Review of Systems: All systems reviewed & are unremarkable except as noted in HPI and below Constitutional: Constitutional: Denies chills, Denies fever(s), Denies headache(s) and Denies weight loss Eyes: Eyes: Denies change in vision ENT: Denies dizziness, Denies headache(s), Denies neck mass and Denies throat swelling Cardiovascular: Cardiovascular: Denies chest pain, Denies lightheadedness and Denies dyspnea Respiratory: Respiratory: Denies cough, Denies dyspnea and Denies wheezing Gastrointestinal: Gastrointestinal: Denies abdominal pain, Denies change in bowel habits, Denies nausea and Denies vomiting Genitourinary: Genitourinary: Denies hematuria and Denies dysuria Musculoskeletal: Musculoskeletal: Reports as per HPI Integumentary/Breasts: Skin/Breast: Reports as per HPI Neurologic: Denies dizziness and Denies headache(s) Allergic/Immunologic: Allergic/Immunologic: Denies throat swelling and Denies wheezing PMF Past Medical History Medical History Encounter for IUD removal 07/20/17 Mirena removal/reinsertion 03/28/19 Mirena removal Encounter for IUD insertion 06/28/12 Mirena insertion 07/20/17 Mirena removal/reinsertion History of right breast cancer 08/2018 Invasive ductal ca, stage 1 grade 1 2019 21 days of radiation Nicotine dependence, cigarettes, uncomplicated Morbid obesity with BMI of 40.0-44.9, adult Hypertension Pure hypercholesterolemia, unspecified Dilated cardiomyopathy (2007) with CHF Surgical History Surgical History H/O right breast biopsy (09/06/18) S/P lumpectomy, right breast (11/30/18) S/P breast biopsy, left (10/13/18) [place] teeth extracted (~2000) History of bilateral breast reduction surgery (11/30/18) History of mastectomy, subtotal (11/30/18) rt breast partial mastectomy--invasive ductal carcinoma History of bunionectomy of both great toes 04/18/16 right foot 03/29/18 left foot History of 06/15/08 primary c/s--non-inducible cervix Family History Family History Father Diabetes mellitus Heart disease Hypertension Lung cancer Other Breast cancer paternal aunt Social History Social History Smoking packs per day: 0.5 Smoking cigarettes per day: 10.0 Years smoked: 25 Smoking pack-years: 12.50 Smoking status: Former smoker Tobacco type: cigarettes Second hand tobacco smoke exposure: No Smoking end date: 10/24/19 Alcohol intake: never Substance use: never Substance use type: does not use Lack of Transportation: No Lack of Food: Never True Current Housing: I Have Housing Concerned About Future Housing: No Difficulty Paying Gas/Electric Bills: No Difficulty Paying for Meds: No Currently Unemployed: No Education: Bachelor's Degree Difficulty w/ Childcare or Family Care: No Living arrangements: with family Additional living arrangements comments: Occupation/Education: occupation Additional occupation/education comments: Teacher Gender identity (if verbalized by the patient): Female Sexual Orientation (if Verbalized by the Patient): Straight or Heterosexual Spiritual care concerns: No Agree to blood products: Yes Meds Home Medications and Allergies Home Medications ?Medication ?Instructions ?Recorded ?Confirmed ?Type amlodipine 5 mg-benazepril 20 mg 1 cap PO DAILY 07/18/23 05/14/25 History capsule atorvastatin 20 mg tablet (Lipitor) 20 mg PO QHS #90 tabs 04/08/25 05/14/25 Rx semaglutide (weight loss) 0.25 0.25 mg (0.5 mL) subcut WEEKLY #2 04/08/25 05/01/25 Rx mg/0.5 mL subcutaneous pen mL injector (Wegovy) carvedilol 25 mg tablet See Rx Instructions .Route 04/09/25 05/14/25 Rx .COMPLEX #180 tabs ibuprofen 600 mg tablet 600 mg PO TID #20 tabs 05/09/25 05/14/25 Rx Allergies Allergy/AdvReac Type Severity Reaction Status Date / Time No Known Allergies Allergy Unknown Verified 05/14/25 11:12 Vital Signs Vital Signs - 24 hr 05/14/25 11:13 Temperature 98.1 F Pulse Rate 91 Respiratory Rate 18 Blood Pressure 138/88 Pulse Oximetry 98 Oxygen Delivery Room Air Exam Const: General: no acute distress and alert Orientation/consciousness: patient oriented x3 HENMT: Head: normocephalic and atraumatic Ears: hearing grossly normal bilaterally Face/Nose/Sinus: Normal nares present Mouth: Yes Normal oral and palatal mucosa present Eyes: Periorbital: periorbital findings normal Sclera: sclerae normal EOM: EOMs intact bilaterally Neck: Neck: normal visual inspection, no lymphadenopathy and trachea midline Chest: Chest palpation & inspection: normal inspection of the chest Resp: Effort & Inspection: normal respiratory effort Auscultation: clear to auscultation bilaterally Cardio: Jugular venous distension: no JVD Rate: regular rate Rhythm: regular rhythm Heart sounds: S1 normal heart sound present and S2 normal heart sound present Peripheral pulses: Peripheral pulses 2+ throughout GI: Inspection: normal to inspection GI Palp: Yes Soft to palpation, No Tenderness to palpation present (GI), No Guarding due to palpation present (GI) and No Rebound tenderness present Percussion: Yes normal to percussion Auscultation: normal bowel sounds : General: Yes no CVA tenderness Back/Spine/Pelvis: Back: no CVA tenderness Neuro: General: patient oriented x3, no focal motor deficits and CN's II-XI intact bilaterally Cognition (Neuro): normal cognition Speech: normal speech Motor exam (neuro): 5/5 motor strength present throughout Extrem: General: capillary refill normal and no clubbing, cyanosis or edema Assessment and Plan Assessment and plan (1) Colon cancer screening: Code(s): Z12.11 - Encounter for screening for malignant neoplasm of colon Status: Acute Assessment and Plan: I have recommended colonoscopy. I have discussed the procedure, risks, benefits, and alternatives. Questions were answered. Patient is agreeable to proceed.
--- NOTE | 2025-05-14 12:33 | S_PTH ---
PATIENT: Adry Cevallos LOC: [facility] U#:[id number] AGE/SX: 50/F ROOM: RE05/14/[address]: Michael Gipson DO : 1975 BED: DIS: 05/14/2025 SPEC #: [id number] RECD: 05/14/25 13:15 STATUS: KARRIE RE #: [id number] FAIZA: 05/14/25 12:[address]: Michael Gipson DEPT: [facility] Surgical RECD BY: Kj Chavez ENTERED: 05/14/25 13:18 SP TYPE: Surgical OTHR DR: Tayler Capone, SULEMAN Tissues: A - Colon Polypectomy B - Colon Polypectomy C - Colon Polypectomy D - Colon Polypectomy E - Colon Polypectomy Procedures: Hematoxylin and Eosin Stain Gross and Microscopic Level 4
[2025-05-14 12:38] VITALS: BP 105/72; PULSE 62; RESP 27; O2SAT 97
[2025-05-14 12:48] VITALS: BP 114/77; PULSE 69; RESP 22; O2SAT 96
[2025-05-14 12:58] VITALS: BP 115/76; PULSE 72; RESP 24; O2SAT 99
== END 2025-05-14 13:09 | disposition home or self-care (01) ==
PROVIDERS: Anesthesiology; PCP Nurse Practitioner Family; Visit Provider Surgery
PROC: 0DJD8ZZ Inspection of Lower Intestinal Tract, Via Natural or Artificial Opening Endoscopic (ICD-10-PCS; CPT 45378; principal; 2025-05-14 12:30)
DX: Z12.11 Encounter for screening for malignant neoplasm of colon (principal); K63.5 Polyp of colon; K62.1 Rectal polyp; K64.8 Other hemorrhoids; Z87.891 Personal history of nicotine dependence; E66.01 Morbid (severe) obesity due to excess calories; Z68.41 Body mass index [BMI] 40.0-44.9, adult
CPT/HCPCS: 45385; 88305; J2704; J7120